=== PATIENT | female | born 1945 | race Asian ===

== ENCOUNTER 2018-10-16 07:14 | Day surgery (SDC) | payer BC ==
[2018-10-16] MEDS: HEPARIN 1000 UNITS/ML 10 ML INJ IRR
[~2018-10-16 07:14] MED LIST: CIPROFLOXACIN 0.3% 2.5 ML OPH OPER; CYCLOPENTOLATE/PHENYLEPH 2 ML OPH OPER; DICLOFENAC 0.1% 2.5 ML OPH OPER; TROPICAMIDE 1% 2 ML OPH OPER
[2018-10-16] MEDS ORDERED: GELATIN SIZE 100 SPONGE (08:41)
[2018-10-16] MEDS ORDERED: LIDOCAINE 1% (MPF) 30 ML INJ (08:41)
[2018-10-16] MEDS ORDERED: THROMBIN (BOVINE) 5,000 UNIT VIAL TP (08:41)
[2018-10-16 08:43] LABS: ADD MAN DIFF? NO
[2018-10-16 08:46] LABS: ABNORMAL IP MESSAGE 1; BASOPHILS % 0.6 % (0.0-2.0); EOSINOPHILS # 0.1 10^3/ul (0.0-0.5); EOSINOPHILS % 4.1 % (0.0-7.0); HEMATOCRIT 21.3 % (37.0-47.0); LYMPHOCYTES # 0.9 10^3/ul (0.8-2.9); LYMPHOCYTES % 26.3 % (15.0-51.0); MEAN CORPUSCULAR HEMOGLOBIN 20.4 pg (29.0-33.0); MEAN CORPUSCULAR VOLUME 65.9 fl (82.0-101.0); MEAN PLATELET VOLUME 8.6 fl (7.4-10.4); MONOCYTE # 0.5 10^3/ul (0.3-0.9); NEUTROPHIL # 1.8 10^3/ul (1.6-7.5); NEUTROPHILS % 52.7 % (39.0-77.0); PLATELET COUNT 175 10^3/UL (140-415); RED BLOOD COUNT 3.23 10^6/ul (4.20-5.40); RED CELL DISTRIBUTION WIDTH 18.2 % (11.5-14.5)
[2018-10-16 08:46] LABS: WHITE BLOOD COUNT 3.4 10^3/ul (4.8-10.8)
[2018-10-16] MEDS: SOD CHLORIDE 0.9% 500 ML IV (08:48)
[2018-10-16 08:52] LABS: HOLD TRANSMISSIONS 1; POSITIVE DIFF @See below
[2018-10-16 08:54] LABS: HEMOGLOBIN 6.6 g/dl (12.0-16.0); PATH REVIEW? YES
[2018-10-16 09:20] LABS: ALANINE AMINOTRANSFERASE 13 IU/L (13-69); ALBUMIN 3.8 g/dl (3.3-4.9); ALBUMIN/GLOBULIN RATIO 1.08; ALKALINE PHOSPHATASE 58 IU/L (42-121); ANION GAP 12 (5-13); ASPARTATE AMINO TRANSFERASE 20 IU/L (15-46); BILIRUBIN,INDIRECT 0.2 mg/dl (0-1.1); BILIRUBIN,TOTAL 0.2 mg/dl (0.2-1.3); CALCIUM 9.5 mg/dl (8.4-10.2); CARBON DIOXIDE 21 mmol/L (21-31); CHLORIDE 107 mmol/L (97-110); GLUCOSE 97 mg/dl (70-220); POTASSIUM 5.1 mmol/L (3.5-5.1); SODIUM 140 mmol/L (135-144); TOTAL PROTEIN 7.3 g/dl (6.1-8.1)
[2018-10-16 09:21] LABS: HEMATOCRIT 22.2 % (37.0-47.0)
[2018-10-16 09:25] LABS: BLOOD UREA NITROGEN 58 mg/dl (7-20); CREATININE 4.21 mg/dl (0.44-1.00)
[2018-10-16 09:29] LABS: HEMOGLOBIN 6.8 g/dl (12.0-16.0)
[2018-10-16 09:33] LABS: PROTIME 12.3 Sec (11.9-14.9)
[2018-10-16 09:34] LABS: PARTIAL THROMBOPLASTIN TIME 33.6 Sec (23.0-35.0)
== END 2018-10-16 10:01 | disposition home or self-care (01) ==
LOC: SDS 07:14
DX: I12.0 Hypertensive chronic kidney disease with stage 5 chronic kidney disease or end stage renal disease (principal); N18.5 Chronic kidney disease, stage 5; Z53.09 Procedure and treatment not carried out because of other contraindication; I25.10 Atherosclerotic heart disease of native coronary artery without angina pectoris; I25.2 Old myocardial infarction; J44.9 Chronic obstructive pulmonary disease, unspecified; Z87.891 Personal history of nicotine dependence; Z79.4 Long term (current) use of insulin
CPT/HCPCS: 71045; 80053; 82962; 85014; 85018; 85025; 85610; 85730; 93005

== ENCOUNTER 2018-10-16 10:13 | Inpatient (IN) | payer OTHER, BC ==
[2018-10-16] MEDS ORDERED: EPOETIN 2000 UNITS/ML SYG (NICU) SC (11:00)
[2018-10-16] MEDS ORDERED: EPOETIN ALFA-EPBX (ESRD) 10,000 UNIT/ML VIAL SC (11:00)
[2018-10-16 11:05] LABS: ADD MAN DIFF? NO
[2018-10-16 11:09] LABS: WHITE BLOOD COUNT 3.5 10^3/ul (4.8-10.8)
[2018-10-16 11:09] LABS: BASOPHILS % 0.6 % (0.0-2.0); EOSINOPHILS # 0.1 10^3/ul (0.0-0.5); EOSINOPHILS % 3.7 % (0.0-7.0); HEMATOCRIT 23.5 % (37.0-47.0); HEMOGLOBIN 7.1 g/dl (12.0-16.0); LYMPHOCYTES # 1.1 10^3/ul (0.8-2.9); LYMPHOCYTES % 29.9 % (15.0-51.0); MEAN CORPUSCULAR HEMOGLOBIN 19.9 pg (29.0-33.0); MEAN CORPUSCULAR HGB CONC 30.2 g/dl (32.0-37.0); MEAN CORPUSCULAR VOLUME 65.8 fl (82.0-101.0); MEAN PLATELET VOLUME 8.4 fl (7.4-10.4); MONOCYTE # 0.5 10^3/ul (0.3-0.9); MONOCYTES % 14.2 % (0.0-11.0); NEUTROPHIL # 1.8 10^3/ul (1.6-7.5); NEUTROPHILS % 51.3 % (39.0-77.0); PLATELET COUNT 192 10^3/UL (140-415); RED BLOOD COUNT 3.57 10^6/ul (4.20-5.40); RED CELL DISTRIBUTION WIDTH 18.6 % (11.5-14.5)
[2018-10-16] MEDS: EPOETIN ALFA-EPBX (ESRD) 10,000 UNIT/ML VIAL SC (11:11)
[2018-10-16 11:24] LABS: ALANINE AMINOTRANSFERASE 14 IU/L (13-69); ALBUMIN 3.9 g/dl (3.3-4.9); ALBUMIN/GLOBULIN RATIO 1.18; ALKALINE PHOSPHATASE 57 IU/L (42-121); ANION GAP 10 (5-13); ASPARTATE AMINO TRANSFERASE 21 IU/L (15-46); BILIRUBIN,INDIRECT 0.3 mg/dl (0-1.1); BILIRUBIN,TOTAL 0.3 mg/dl (0.2-1.3); BLOOD UREA NITROGEN 54 mg/dl (7-20); CALCIUM 9.8 mg/dl (8.4-10.2); CARBON DIOXIDE 21 mmol/L (21-31); CHLORIDE 108 mmol/L (97-110); CREATININE 4.22 mg/dl (0.44-1.00); GLUCOSE 111 mg/dl (70-220); POTASSIUM 5.1 mmol/L (3.5-5.1); SODIUM 139 mmol/L (135-144); TOTAL PROTEIN 7.2 g/dl (6.1-8.1)
[2018-10-16 11:27] LABS: INR 0.89; PROTIME 12.2 Sec (11.9-14.9)
[2018-10-16 11:36] LABS: TROPONIN-I < 0.012 ng/ml (0.000-0.120)
[2018-10-16 11:54] LABS: IMMEDIATE SPIN CROSSMATCH 1 2
[2018-10-16] MEDS ORDERED: ACETAMINOPHEN 325 MG TAB PO ×3 (13:30→15:00)
[2018-10-16] MEDS ORDERED: ONDANSETRON 4 MG INJ IV ×3 (13:30→15:00)
[2018-10-16] MEDS ORDERED: NACL 0.9% 3 ML SYG IV (15:00)
[2018-10-16] MEDS ORDERED: morphine 2 MG INJ IV (15:00)
[2018-10-16] MEDS: ISOSORBIDE DINITRATE 5 MG TAB PO (20:51)
[2018-10-16] MEDS: ATORVASTATIN 40 MG TAB PO (20:51)
[2018-10-16] MEDS: FAMOTIDINE 20 MG TAB PO (20:51)
[2018-10-16] MEDS ORDERED: GLUCOSE GEL 15 GRAM TUBE PO ×2 (22:30)
[2018-10-16] MEDS: INSULIN ASPART [NOVOLOG] 3 ML PEN SC (22:30)
[2018-10-16] MEDS ORDERED: GLUCAGON 1 MG INJ IM (22:30)
[2018-10-16] MEDS ORDERED: GLUCOSE GEL 15 GRAM TUBE BUCCAL (22:30)
[2018-10-16] MEDS ORDERED: DEXTROSE 50% 50 ML SYRINGE IV ×2 (22:30)
[2018-10-17] MEDS: ACCU-CHEK XX (02:00)
[2018-10-17] MEDS ORDERED: hydrALAzine 20 MG INJ (04:35)
[2018-10-17] MEDS: hydrALAzine 20 MG INJ IV (04:39)
[2018-10-17 07:04] LABS: ALANINE AMINOTRANSFERASE 9 IU/L (13-69); ALBUMIN 3.6 g/dl (3.3-4.9); ALBUMIN/GLOBULIN RATIO 1.12; ALKALINE PHOSPHATASE 51 IU/L (42-121); ANION GAP 10 (5-13); ASPARTATE AMINO TRANSFERASE 25 IU/L (15-46); BILIRUBIN,INDIRECT 0.4 mg/dl (0-1.1); BILIRUBIN,TOTAL 0.4 mg/dl (0.2-1.3); BLOOD UREA NITROGEN 54 mg/dl (7-20); CALCIUM 9.5 mg/dl (8.4-10.2); CARBON DIOXIDE 19 mmol/L (21-31); CHLORIDE 111 mmol/L (97-110); CHOL/HDL RATIO 4.2 RATIO; CHOLESTEROL 141 mg/dl (100-200); CREATININE 3.96 mg/dl (0.44-1.00); GLUCOSE 91 mg/dl (70-220); HDL CHOLESTEROL 33 mg/dl (33-92); LDL CHOLESTEROL,CALCULATED 61 mg/dl; MAGNESIUM 2.8 mg/dl (1.7-2.5); PHOSPHORUS 4.5 mg/dl (2.5-4.9); SODIUM 140 mmol/L (135-144); TOTAL PROTEIN 6.8 g/dl (6.1-8.1); TRIGLYCERIDES 234 mg/dl (0-149)
[2018-10-17 07:05] LABS: HEMOGLOBIN A1C 5.8 % (0-5.9)
[2018-10-17 07:19] LABS: FREE THYROXINE INDEX (Calc) 3.08 ug/ml (0.65-3.89); T3 UPTAKE 37.6 % (23.5-40.5); T4 (THYROXINE) 8.2 ug/dl (5.5-11.0)
[2018-10-17] MEDS: INSULIN ASPART [NOVOLOG] 3 ML PEN SC ×2 (08:00→12:00)
[2018-10-17] MEDS: FUROSEMIDE 20 MG TAB PO (08:34)
[2018-10-17] MEDS: CALCITRIOL 0.25 MCG CAP PO (08:35)
[2018-10-17] MEDS: NA BICARBONATE 650 MG TAB PO (08:35)
[2018-10-17] MEDS: FERROUS SULFATE (EC) 325 MG TAB PO (08:36)
[2018-10-17] MEDS: AMLODIPINE 10 MG TAB PO (08:36)
[2018-10-17] MEDS: CLOPIDOGREL 75 MG TAB PO (08:37)
[2018-10-17] MEDS: ISOSORBIDE DINITRATE 5 MG TAB PO (08:37)
[2018-10-17] MEDS: MAGNESIUM OXIDE 400 MG TAB PO (08:38)
[2018-10-17] MEDS ORDERED: CALCITRIOL (1 MCG/ML PO SYG) PO (09:00)
[2018-10-17 09:58] LABS: IRON 65 ug/dl (35-150)
[2018-10-17 10:07] LABS: % IRON SATURATION 29 % SAT (22-52); TOTAL IRON BINDING CAPACITY 222 ug/dl (241-421)
[2018-10-17 11:54] LABS: ADD MAN DIFF? NO
[2018-10-17 11:57] LABS: BASOPHILS % 0.8 % (0.0-2.0); EOSINOPHILS # 0.1 10^3/ul (0.0-0.5); EOSINOPHILS % 2.6 % (0.0-7.0); HEMATOCRIT 32.5 % (37.0-47.0); HEMOGLOBIN 10.3 g/dl (12.0-16.0); LYMPHOCYTES % 25.8 % (15.0-51.0); MEAN CORPUSCULAR HEMOGLOBIN 21.9 pg (29.0-33.0); MEAN CORPUSCULAR HGB CONC 31.7 g/dl (32.0-37.0); MEAN PLATELET VOLUME 8.5 fl (7.4-10.4); MONOCYTE # 0.5 10^3/ul (0.3-0.9); NEUTROPHIL # 2.2 10^3/ul (1.6-7.5); NEUTROPHILS % 57.3 % (39.0-77.0); PLATELET COUNT 178 10^3/UL (140-415); RED BLOOD COUNT 4.71 10^6/ul (4.20-5.40); RED CELL DISTRIBUTION WIDTH 19.5 % (11.5-14.5)
[2018-10-17 11:57] LABS: WHITE BLOOD COUNT 3.8 10^3/ul (4.8-10.8)
[2018-10-17 12:17] LABS: ANION GAP 13 (5-13); BLOOD UREA NITROGEN 54 mg/dl (7-20); CALCIUM 9.4 mg/dl (8.4-10.2); CARBON DIOXIDE 20 mmol/L (21-31); CHLORIDE 107 mmol/L (97-110); CREATININE 3.88 mg/dl (0.44-1.00); GLUCOSE 130 mg/dl (70-220); POTASSIUM 5.3 mmol/L (3.5-5.1); SODIUM 140 mmol/L (135-144)
[2018-10-17] MEDS: SODIUM POLYSTYRENE 15 GM KIT (POWDER + SORBITOL) PO (13:18)
== END 2018-10-17 17:30 | disposition home or self-care (01) | DRG 812 ==
LOC: E/R 10:13 → PP2 13:19
PROVIDERS: Pediatrics
PROC: 30233N1 Transfusion of Nonautologous Red Blood Cells into Peripheral Vein, Percutaneous Approach (ICD-10-PCS; principal; 2018-10-16)
DX: D64.9 Anemia, unspecified (principal); N18.5 Chronic kidney disease, stage 5; I13.2 Hypertensive heart and chronic kidney disease with heart failure and with stage 5 chronic kidney disease, or end stage renal disease; E87.2 Acidosis; E78.5 Hyperlipidemia, unspecified; I25.10 Atherosclerotic heart disease of native coronary artery without angina pectoris; D63.8 Anemia in other chronic diseases classified elsewhere; E11.22 Type 2 diabetes mellitus with diabetic chronic kidney disease; I50.9 Heart failure, unspecified; D63.1 Anemia in chronic kidney disease; Z79.82 Long term (current) use of aspirin; Z79.4 Long term (current) use of insulin; Z79.02 Long term (current) use of antithrombotics/antiplatelets; Z99.2 Dependence on renal dialysis; Z95.5 Presence of coronary angioplasty implant and graft
CPT/HCPCS: 36430; 71045; 80048; 80053; 80061; 82962; 83036; 83540; 83735; 84100; 84436; 84443; 84479; 84484; 85025; 85610; 85730; 86850; 86900; 86901; 86920; 93005; 96372; 99285-25